=== PATIENT | male | born 1955 | race Caucasian/White ===

== ENCOUNTER 2016-04-09 18:13 | Emergency (ER) | payer OTHER ==
[~2016-04-09] VITALS: Ht 182.9 cm; Wt 90.7 kg
[2016-04-10 07:46] VITALS: BP 145/82
== END 2016-04-10 07:46 | disposition home or self-care (01) ==
LOC: ER 18:15
DX: F10.129 Alcohol abuse with intoxication, unspecified (principal); Z88.0 Allergy status to penicillin; F17.200 Nicotine dependence, unspecified, uncomplicated; F10.10 Alcohol abuse, uncomplicated; Z91.02 Food additives allergy status; Z88.8 Allergy status to other drugs, medicaments and biological substances
CPT/HCPCS: 99283; A4606; Z7610

== ENCOUNTER 2016-09-13 12:12 | Emergency (ER) | payer OTHER ==
[~2016-09-13] VITALS: Ht 185.4 cm; Wt 104.3 kg
--- NOTE | 2016-09-13 12:12 | NUR ---
PT BIB RA C/O HEMATEMESIS SINCE LAST NIGHT "COFFEE GROUND EMESIS" PER PARAMEDICS, BS=72MG/DL IN THE FIELD. AWAITING MD ORDER
[2016-09-13] MEDS ORDERED: PANTOPRAZOLE 40 MG VIAL IV ONE (12:30)
[2016-09-13] MEDS ORDERED: IV NS 0.9% 1,000 ML BAG IV ONE (12:30)
[2016-09-13] MEDS ORDERED: PANTOPRAZOLE 40 MG VIAL ONE (12:35)
[2016-09-13] MEDS ORDERED: IV NS 0.9% 1,000 ML ONE (12:36)
[2016-09-13] MEDS ORDERED: LORAZEPAM INJ 2 MG/ML VIAL ONE ×2 (12:36→14:36)
--- NOTE | 2016-09-13 13:00 | NUR ---
[place] cobb in [facility] - 09/13/16 at 1300 by JOCYON MEDARDO AT [facility] FOR PSYCH EVAL
--- NOTE | 2016-09-13 13:11 | NUR ---
COATER HELPER AT BEDSIDE
[2016-09-13] MEDS ORDERED: PANTOPRAZOLE 40 MG TABLET.DR PO ONE ×2 (13:23→14:00)
[2016-09-13] MEDS ORDERED: LORAZEPAM 1 MG TABLET ONE (13:23)
[2016-09-13] MEDS ORDERED: ONDANSETRON 4 MG TAB.RAPDIS ONE (13:23)
[2016-09-13] MEDS: LORAZEPAM INJ 2 MG/ML VIAL IV ONE ×3 (13:24→14:16)
--- NOTE | 2016-09-13 13:26 | NUR ---
MEDARDO RN PET TEAM COMBINATION MACHINE TENDER SPOKE WITH [facility] TO PRESENT FOR POSSIBLE TRANSFER
[2016-09-13] MEDS: LORAZEPAM INJ 2 MG/ML VIAL IM ONE ×2 (13:32→14:00)
--- NOTE | 2016-09-13 13:33 | NUR ---
UNABLE TO GET PERIPHERAL LINE, MADE AWARE.
[2016-09-13] MEDS ORDERED: ONDANSETRON 4 MG TAB.RAPDIS PO ONE (14:00)
[2016-09-13] MEDS ORDERED: LORAZEPAM INJ 2 MG/ML VIAL IM ONE (14:30)
--- NOTE | 2016-09-13 15:53 | NUR ---
Patient discharged to home in stable condition. Written and verbal after care instructions given. Patient verbalizes understanding of instruction.
[2016-09-13 15:54] VITALS: BP 140/90
== END 2016-09-13 15:59 | disposition home or self-care (01) ==
LOC: ER 12:13
DX: F10.239 Alcohol dependence with withdrawal, unspecified (principal); F17.200 Nicotine dependence, unspecified, uncomplicated; G40.909 Epilepsy, unspecified, not intractable, without status epilepticus; Z88.0 Allergy status to penicillin; Z88.8 Allergy status to other drugs, medicaments and biological substances; Z98.890 Other specified postprocedural states
CPT/HCPCS: 71010-TC; 73610-TC; A4606; C9113; J2060; J7030; Q0162; Z7610

== ENCOUNTER 2016-10-09 07:47 | Emergency (ER) | payer OTHER ==
[~2016-10-09] VITALS: Ht 175.3 cm; Wt 68.5 kg
--- NOTE | 2016-10-09 07:47 | NUR ---
bbra from streets for etoh. nad noted. per ems pt just discharged from another hospital. pt aao x3, ambulatory with steady gait. pending md spann.
[2016-10-09 08:10] VITALS: BP 151/74
--- NOTE | 2016-10-09 08:11 | NUR ---
Patient eloped from facility. ER MD notified.
== END 2016-10-09 08:16 | disposition left against medical advice (07) ==
LOC: ER 07:49
DX: R00.0 Tachycardia, unspecified (principal); F10.129 Alcohol abuse with intoxication, unspecified; F17.200 Nicotine dependence, unspecified, uncomplicated; Z88.0 Allergy status to penicillin; Z88.8 Allergy status to other drugs, medicaments and biological substances; Z98.890 Other specified postprocedural states
CPT/HCPCS: 93005; 99283; A4606; Z7610

== ENCOUNTER 2016-10-22 18:02 | Emergency (ER) | payer OTHER ==
[~2016-10-22] VITALS: Ht 175.3 cm; Wt 104.3 kg
--- NOTE | 2016-10-22 18:07 | NUR ---
PT YUSRA FROM THE STREETS. HERE FOR ETOH. SEEN MULTIPLE TIMES FOR SAME REASON. NO OBVIOUOS TRAUMA NOTED. AAOX3. NO MEDICAL COMPLAINTS AT THIS TIME. AWAITING MD PALMA.
--- NOTE | 2016-10-22 18:56 | NUR ---
PT WANTS TO LEAVE ED. PT IS AAO, AMBULATES W/ STEADY GAIT. EVALUATED BY ERMD. D/C IN STABLE CONDITION.
[2016-10-22 18:57] VITALS: BP 125/77
== END 2016-10-22 18:57 | disposition home or self-care (01) ==
LOC: ER 18:04
DX: F10.10 Alcohol abuse, uncomplicated (principal); F17.200 Nicotine dependence, unspecified, uncomplicated; Z88.0 Allergy status to penicillin; Z88.8 Allergy status to other drugs, medicaments and biological substances; Z98.890 Other specified postprocedural states
CPT/HCPCS: A4606; Z7610

== ENCOUNTER 2016-10-24 18:32 | Emergency (ER) | payer OTHER ==
[~2016-10-24] VITALS: Ht 182.9 cm; Wt 83.9 kg
--- NOTE | 2016-10-24 20:12 | NUR ---
PT SLEEPING IN [place]. NO IMMEDIATE SIGNS OF DISTRESS NOTED. PT VITAL SIGNS STABLE. BREATHS EQUAL AND UNLABORED. WILL CONT TO MONITOR PT.
--- NOTE | 2016-10-25 02:00 | NUR ---
pt sleeping in gurney. pt easily arousable. no signs of distress noted. breaths equal and unlabored. will cont to monitor pt.
--- NOTE | 2016-10-25 05:46 | NUR ---
pt ok to discharge per dr osorio. pt requesting to be discharged. Patient is awake and alert to self, day, and place.Patient discharged to home in stable condition. Written and verbal after care instructions given. Patient verbalizes understanding of instruction. pt ambulatory with a steady gait
[2016-10-25 05:48] VITALS: BP 158/82
== END 2016-10-25 05:48 | disposition home or self-care (01) ==
LOC: ER 18:34
DX: F10.129 Alcohol abuse with intoxication, unspecified (principal); F17.200 Nicotine dependence, unspecified, uncomplicated; Z88.0 Allergy status to penicillin; Z88.8 Allergy status to other drugs, medicaments and biological substances; Z98.890 Other specified postprocedural states
CPT/HCPCS: A4606; Z7610

== ENCOUNTER 2016-12-06 15:04 | Emergency (ER) | payer OTHER ==
[~2016-12-06] VITALS: Ht 182.9 cm; Wt 86.2 kg
--- NOTE | 2016-12-06 15:15 | NUR ---
PT BIBA SITTING ON A SIDEWALK WITH BOTTLE OF VODKA. NOTED AMS. VSS. SEEN BY PA. SAFETY AND COMFORT MEASURES PROVIDED. WILL MONITOR.
[2016-12-06] MEDS ORDERED: IV NS 0.9% 1,000 ML BAG IV ONE (15:30)
[2016-12-06 15:44] LABS: BASOPHILS # (AUTO) 0.1 /CMM (0.0-0.2); BASOPHILS % (AUTO) 1.4 % (0.0-2.0); EOSINOPHILS # (AUTO) 0.2 /CMM (0.0-0.7); EOSINOPHILS % (AUTO) 4.4 % (0.0-6.0); HEMATOCRIT 39 % (39-51); HEMOGLOBIN 13.2 g/dL (13.5-17.5); LYMPHOCYTES # (AUTO) 0.9 /CMM (0.8-4.8); LYMPHOCYTES % (AUTO) 18.7 % (20.0-44.0); MEAN CORPUSCULAR HEMOGLOBIN 32 PG (26.0-33.0); MEAN CORPUSCULAR HGB CONC 34 g/dl (31.0-36.0); MEAN CORPUSCULAR VOLUME 97 fL (80-96); MONOCYTES # (AUTO) 0.5 /CMM (0.1-1.30); MONOCYTES % (AUTO) 11.3 % (2.0-12.0); NEUTROPHILS % (AUTO) 64.2 % (43.0-81.0); PLATELET COUNT (AUTO) 173 /CMM (150-450); RDW COEFFICIENT OF VARIATION 14.5 (11.5-15.0); RED BLOOD CELL COUNT(AUTO) 4.06 MIL/uL (4.5-6.0); WHITE BLOOD COUNT (AUTO) 4.7 K/uL (4.3-11.0)
[2016-12-06 15:51] LABS: CREATININE 0.8 mg/dL (0.6-1.3); POTASSIUM 3.7 mmol/L (3.5-5.1)
[2016-12-06 15:55] LABS: INR 1.06 (0.87-1.13)
[2016-12-06 15:57] LABS: BILIRUBIN,DIRECT 0.3 mg/dL (0.0-0.2); BILIRUBIN,TOTAL 0.8 mg/dL (0.2-1.0); TOTAL PROTEIN, SERUM 6.4 g/dL (6.4-8.2)
--- NOTE | 2016-12-06 16:15 | NUR ---
IV removed. Catheter intact and site benign. Pressure and 4x4 applied to site. No bleeding noted.
--- NOTE | 2016-12-06 16:38 | NUR ---
Patient discharged to home in stable condition. Patient verbalizes understanding of instruction. Pt ambulatory with a steady gait.
[2016-12-06 16:42] VITALS: BP 128/71
== END 2016-12-06 16:43 | disposition home or self-care (01) ==
LOC: ER 15:07
DX: F10.129 Alcohol abuse with intoxication, unspecified (principal); E86.0 Dehydration; L25.9 Unspecified contact dermatitis, unspecified cause; R46.0 Very low level of personal hygiene; R74.0 Nonspecific elevation of levels of transaminase and lactic acid dehydrogenase [LDH]; Z59.0 Homelessness; Z88.0 Allergy status to penicillin; X58.XXXA Exposure to other specified factors, initial encounter; Y92.480 Sidewalk as the place of occurrence of the external cause; Y93.89 Activity, other specified; Y99.8 Other external cause status
CPT/HCPCS: 36415; 80048; 80076; 85025; 85730; 93005; 96360; 99285; A4606; J7030; Z7610

== ENCOUNTER 2023-09-02 17:31 | Emergency (ER) | payer OTHER, MEDICAID ==
[~2023-09-02] VITALS: Ht 177.8 cm; Wt 113.4 kg
[2023-09-02 18:12] LABS: BASOPHILS % (AUTO) 0.3 % (0.0-2.0); EOSINOPHILS % (AUTO) 0.4 % (0.0-6.0); HEMATOCRIT 42 % (39-51); HEMOGLOBIN 14.4 g/dL (13.5-17.5); LYMPHOCYTES # (AUTO) 2.2 K/uL (0.8-4.8); LYMPHOCYTES % (AUTO) 23.1 % (20.0-44.0); MEAN CORPUSCULAR HEMOGLOBIN 35 PG (26.0-33.0); MEAN CORPUSCULAR HGB CONC 35 g/dl (31.0-36.0); MEAN CORPUSCULAR VOLUME 100 fL (80-96); MONOCYTES # (AUTO) 0.9 K/uL (0.1-1.30); MONOCYTES % (AUTO) 9.4 % (2.0-12.0); NEUTROPHILS # (AUTO) 6.3 K/uL (1.8-8.9); NEUTROPHILS % (AUTO) 66.8 % (43.0-81.0); PLATELET COUNT (AUTO) 151 K/uL (150-450); RED BLOOD CELL COUNT(AUTO) 4.17 MIL/uL (4.5-6.0); RED CELL DISTRIBUTION WIDTH 14.7 % (11.5-15.0); WHITE BLOOD COUNT (AUTO) 9.4 K/uL (4.3-11.0)
[2023-09-02 18:51] LABS: CALCIUM, SERUM 8.7 mg/dL (8.5-10.1); CREATININE 0.8 mg/dL (0.6-1.3); POTASSIUM 3.7 mmol/L (3.5-5.1)
[2023-09-02 18:57] LABS: ALBUMIN 2.8 g/dL (3.4-5.0); BILIRUBIN,DIRECT 0.2 mg/dL (0.0-0.2); BILIRUBIN,TOTAL 0.7 mg/dL (0.2-1.0); SALICYLATE 3.3 mg/dL (2.8-20.0); TOTAL PROTEIN, SERUM 7.7 g/dL (6.4-8.2)
[2023-09-02 19:46] LABS: APPEARANCE,URINE CLEAR (CLEAR); BILIRUBIN,URINE NEGATIVE (NEGATIVE); BLOOD, URINE 2+ Ery/uL (NEGATIVE); COLOR,URINE YELLOW (YELLOW); KETONES,URINE NEGATIVE (NEGATIVE); LEUKOCYTE ESTERASE ,URINE 1+ (NEGATIVE); NITRITE, URINE NEGATIVE (NEGATIVE); PROTEIN,URINE NEGATIVE (NEGATIVE); UGLUCOSE NEGATIVE (NEGATIVE); UROBILINOGEN,URINE 0.2 EU/dL (0.2)
[2023-09-02] MEDS: AZITHROMYCIN 500 MG in IV D5W 250 ML IV ONE (20:00)
[2023-09-02] MEDS: CEFTRIAXONE 1GM BAG (ER ONLY) 1 GM/50 ML PIGGYBACK IV ONE (20:00)
[2023-09-02 20:08] LABS: AMPHETAMINE, URINE NEGATIVE (NEGATIVE); BARBITURATE, URINE NEGATIVE (NEGATIVE); BENZODIAZEPINE, URINE NEGATIVE (NEGATIVE); CANNABINOID, URINE NEGATIVE (NEGATIVE); COCCAINE, URINE NEGATIVE (NEGATIVE); OPIATE, URINE NEGATIVE (NEGATIVE); PHENCYCLIDINE SCREEN,URINE NEGATIVE (NEGATIVE)
[2023-09-02] MEDS ORDERED: DOXY100T2 PO (20:15)
[2023-09-02 20:41] LABS: ADD URINE CULTURE YES; BACTERIA,URINE 2+ /HPF (None Seen); MUCUS,URINE Few /LPF (None Seen)
[2023-09-02] MEDS ORDERED: AZITHROMYCIN 500 MG VIAL ONE ×2 (21:42→21:43)
[2023-09-02] MEDS ORDERED: CEFTRIAXONE 1GM BAG (ER ONLY) 50 ML IV ONE (21:43)
[2023-09-03 07:45] VITALS: BP 122/64; TEMP 98.2; O2SAT 99
== END 2023-09-03 07:45 ==
LOC: ER 17:47
DX: F10.129 Alcohol abuse with intoxication, unspecified (principal); J18.9 Pneumonia, unspecified organism; F17.200 Nicotine dependence, unspecified, uncomplicated; R51.9 Headache, unspecified; R06.02 Shortness of breath; Z98.890 Other specified postprocedural states; Z91.018 Allergy to other foods; Z88.0 Allergy status to penicillin; Y90.8 Blood alcohol level of 240 mg/100 ml or more
CPT/HCPCS: 99291; 96365; 96368; 93005; 71045; 70450; 82140; 85025; 80048; 87086; 80076; 81001; 36415; 82962; 80143; 80320; 80307; J0456 ×2; A4223; J0696; G0480; J7060